=== PATIENT | female | born 1950 | race Caucasian/White ===

== ENCOUNTER 2024-08-24 08:25 | Outpatient (CLI) | payer MEDICARE | END 2024-08-24 08:26 | disposition home or self-care (01) | LOC: CT 08:25 | PROVIDERS: ATTEND Family Medicine | DX: Q45.3 Other congenital malformations of pancreas and pancreatic duct (principal); R10.9 Unspecified abdominal pain; K86.89 Other specified diseases of pancreas; K80.20 Calculus of gallbladder without cholecystitis without obstruction | CPT/HCPCS: 74178; 82565 ==

== ENCOUNTER 2025-05-04 08:15 | Outpatient (CLI) | payer MEDICARE ==
[2025-05-04 09:57] LABS: Estimated GFR - POC 43.0
[2025-05-04] MEDS ORDERED: Iopamidol 370 76% 100 ML VIAL ONE (11:33)
== END 2025-05-04 08:16 | disposition home or self-care (01) ==
LOC: CT 08:15
PROVIDERS: ATTEND Family Medicine
DX: Q45.3 Other congenital malformations of pancreas and pancreatic duct (principal); K80.20 Calculus of gallbladder without cholecystitis without obstruction; K86.89 Other specified diseases of pancreas
CPT/HCPCS: 36415; 74170; 82565